=== PATIENT | female | born 1970 | race Caucasian/White ===

== ENCOUNTER 2020-10-04 08:43 | Emergency (ER) | payer OTHER, SELFPAY ==
[2020-10-04 09:04] VITALS: BP 131/72; PULSE 75; RESP 17; TEMP 36.5; O2SAT 98
--- NOTE | 2020-10-04 09:18 | ED.EAR ---
HPI - Ear Problem General Chief complaint: Ear Stated complaint: Ear Pain Time Seen by Provider: 10/04/20 09:06 Source: patient and RN notes reviewed Mode of arrival: ambulatory Limitations: no limitations History of Present Illness HPI Narrative: Patient presents today complaining of right external ear pain, right ear canal pain x2 days. Pain increases with chewing and with lying on her right side. She currently rates her pain 4/10 and has been taking ibuprofen with some relief. Denies sore throat, nasal congestion. States she does have some seasonal allergy symptoms. Reports that she does have some clicking in her jaw at baseline with opening and closing. MD Complaint: ear pain Related Data Home Medications Medication Instructions Recorded Confirmed albuterol sulfate 2 puff INHALATION QID PRN 05/07/19 10/04/20 cetirizine 10 mg PO DAILY 05/07/19 10/04/20 fluoxetine 20 mg PO DAILY 05/07/19 10/04/20 lisinopril 20 mg PO DAILY 05/07/19 10/04/20 propranolol 20 mg PO DAILY 05/07/19 10/04/20 bupropion HCl 300 mg PO DAILY 10/04/20 10/04/20 sumatriptan succinate 0.6 mg SUBCUT DIRECTED 10/04/20 10/04/20 Allergies Allergy/AdvReac Type Severity Reaction Status Date / Time codeine Allergy Unknown Unknown Verified 10/04/20 08:54 erythromycin base AdvReac Intermediate abdominal Verified 10/04/20 08:54 pain and diarrher Review of Systems Review of Systems: Narrative: CONSTITUTIONAL: Denies body aches, fever, chills, or sweats. EYES: Denies visual changes, redness, or discharge. ENT: Denies rhinorrhea, congestion, sore throat. + Right ear pain CARDIOVASCULAR: Denies chest pain, palpitations, or edema. RESPIRATORY: Denies cough or dyspnea. GASTROINTESTINAL: Denies abdominal pain, nausea, vomiting, or diarrhea. GENITOURINARY: Denies dysuria or hematuria. SKIN: Denies rash, itching, or wounds. MUSCULOSKELETAL: Denies back pain, joint pain, or myalgia. NEUROLOGIC: Denies headache, numbness, tingling, or weakness. PSYCH: Denies depression or anxiety. [facility] Past Medical History Medical History (Updated 10/04/20 @ 09:58 by Smitha Lopez, [employer], BC) Anxiety Asthma GERD (gastroesophageal reflux disease) Hypertension Seasonal allergies Social History Social History Smoking status: Never smoker Alcohol intake: current Gender identity (if verbalized by the patient): Female Comments At time of signature, I have reviewed and agree with nursing past medical, surgical, social and family history unless otherwise noted. Please see nursing chart for further information. There is no relevant family history pertinent to the presenting complaint Exam Narrative: Exam Narrative: GENERAL: Well-appearing, well-nourished, and in no acute distress. HEAD: Normocephalic, atraumatic. EYES: EOMI. No redness or drainage. Conjunctivae normal. ENT: Mucous membranes pink and moist. TMs normal bilaterally. Left ear canal normal. Right ear canal is slightly pink without edema. Right ear with tragal and movement tenderness. Tenderness to the right TM joint upon palpation. Clicking of left TM joint with opening and closing of the mouth. NECK: Normal AROM. Supple. No lymphadenopathy. CHEST: No respiratory distress. EXTREMITIES: Normal range of motion. No edema. SKIN: Warm, dry, no rash. Capillary refill normal. Normal skin turgor. NEURO: No focal deficits. Alert and oriented x3. Gait steady. PSYCH: Normal affect. No signs of depression or anxiety. Course Vital Signs Vital signs: Vital Signs Temperature 97.7 F 10/04/20 09:04 Pulse Rate 75 10/04/20 09:04 Respiratory Rate 17 10/04/20 09:04 Blood Pressure 131/72 10/04/20 09:04 Pulse Oximetry 98 10/04/20 09:04 Temperature 97.7 F 10/04/20 09:04 Pulse Rate 75 10/04/20 09:04 Respiratory Rate 17 10/04/20 09:04 Blood Pressure 131/72 10/04/20 09:04 Pulse Oximetry 98 10/04/20
== END 2020-10-04 09:24 | disposition home or self-care (01) ==
PROVIDERS: Emergency Provider Nurse Practitioner
DX: M26.621 Arthralgia of right temporomandibular joint (principal); F41.9 Anxiety disorder, unspecified; J45.909 Unspecified asthma, uncomplicated; K21.9 Gastro-esophageal reflux disease without esophagitis; I10 Essential (primary) hypertension
CPT/HCPCS: 99213; G0463

== ENCOUNTER 2021-06-06 12:58 | Emergency (ER) | payer OTHER, SELFPAY ==
[2021-06-06 13:09] VITALS: BP 132/70; PULSE 75; RESP 16; TEMP 36.6; O2SAT 99
--- NOTE | 2021-06-06 13:11 | ED.URI ---
HPI - URI/Sore Throat General Chief Complaint: Upper Respiratory Infection Stated Complaint: Congestion,ear Pain Time Seen by Provider: 06/06/21 13:12 Source: patient, family, RN notes reviewed and old records reviewed Mode of arrival: ambulatory Limitations: no limitations History of Present Illness HPI Narrative: 50-year-old female presents to the [facility] with complaints of ear pain and congestion. Also has a sore on her bottom lip. Patient states that she got her Covid booster on , symptoms started on Sunday with generalized body aches, congestion and generalized fatigue. Related Data Home Medications Medication Instructions Recorded Confirmed cetirizine 10 mg PO DAILY 05/07/19 06/06/21 fluoxetine 20 mg PO DAILY 05/07/19 06/06/21 lisinopril 20 mg PO DAILY 05/07/19 06/06/21 bupropion HCl 300 mg PO DAILY 10/04/20 06/06/21 Allergies Allergy/AdvReac Type Severity Reaction Status Date / Time codeine Allergy Unknown Unknown Verified 06/06/21 13:24 erythromycin base AdvReac Intermediate abdominal Verified 06/06/21 13:24 pain and diarrher Review of Systems Review of Systems: All systems reviewed & are unremarkable except as noted in HPI and below Constitutional: Constitutional: Reports as per HPI, Reports chills, Reports fatigue and Denies fever(s) Eyes: Eyes: Reports no additional eye complaints ENT: Reports as per HPI and Reports nasal congestion Cardiovascular: Cardiovascular: Reports no additional cardiovascular complaints and Denies chest pain Respiratory: Respiratory: Reports no additional respiratory complaints, Denies cough and Denies dyspnea Gastrointestinal: Gastrointestinal: Reports no additional gastrointestinal complaints Musculoskeletal: Musculoskeletal: Reports as per HPI and Reports myalgias Integumentary/Breasts: Skin/Breast: Reports system reviewed and no additional complaints, except as docu Neurologic: Reports system reviewed and no additional complaints, except as documented Psychiatric: Psychiatric: Reports no additional psychiatric complaints Allergic/Immunologic: Allergic/Immunologic: Reports no additional allergic/immunologic complaints [facility] Past Medical History Medical History (Updated 06/08/21 @ 10:05 by Margie Mahoney) Anxiety Asthma GERD (gastroesophageal reflux disease) Hypertension Seasonal allergies Social History Social History Smoking status: Never smoker Alcohol intake: current Gender identity (if verbalized by the patient): Female Comments At the time of my signature, I reviewed and agree with the nursing past medical, surgical, social, and family history. There is no relevant family history pertinent to the patient complaint. Exam Const: General: no acute distress, alert and ill appearing acutely (Mild) Nutritional Appearance: well nourished Orientation/consciousness: patient oriented x3 Limitations: no limitations HENMT: Head: normal to inspection Ears: external ears normal, TM's normal bilaterally and EAC's normal Nose image: 1. Cold sores Face and sinus: normal facial exam and sinuses nontender Mouth: Yes lip abnormal right lower lesion Throat: posterior oropharynx normal and uvula midline Eyes: Conjunctivae: conjunctivae normal Pupils: Equal, round and reactive pupils present Neck: Neck: normal visual inspection, no lymphadenopathy and no meningeal signs Chest: Chest palpation & inspection: normal inspection of the chest Resp: Effort & Inspection: normal respiratory effort Auscultation: clear to auscultation bilaterally Cardio: Rate: regular rate Rhythm: regular rhythm Back/Spine/Pelvis: Back: no CVA tenderness Skin: General skin exam: normal color Rashes: no rashes Wounds: no wounds Neuro: General: patient oriented x3, moves all extremities, no meningeal signs and no focal motor deficits Speech: normal speech Gait exam (Neuro): Normal gait present Extr
== END 2021-06-06 13:35 | disposition home or self-care (01) ==
PROVIDERS: Emergency Provider Nurse Practitioner
DX: B00.1 Herpesviral vesicular dermatitis (principal); R53.83 Other fatigue; R52 Pain, unspecified; R09.81 Nasal congestion; T50.B95A Adverse effect of other viral vaccines, initial encounter; I10 Essential (primary) hypertension
CPT/HCPCS: 99213; G0463